=== PATIENT | male | born 1960 | race Caucasian/White ===

== ENCOUNTER 2018-04-03 22:25 | Emergency (ER) | payer OTHER ==
[~2018-04-03] VITALS: Ht 172.7 cm; Wt 104.3 kg
--- NOTE | 2018-04-03 22:32 | ED CARDIAC/CP/PALPITATIONS ---
History of Present Illness General Chief Complaint: Chest Pain Stated Complaint: BIBA CHEST PAIN AFTER SNEEZING Source: patient Exam Limitations: no limitations Vital Signs & Intake/Output Vital Signs & Intake/Output Vital Signs Date Time Temp Pulse Resp B/P B/P Pulse O2 O2 Flow FiO2 Mean Ox Delivery Rate 04/03 2303 Room Air 04/03 2235 98.1 85 16 117/61 96 Room Air ED Intake and Output 04/04 0000 04/03 1200 Intake Total Output Total 200 Balance -200 Output, Urine 200 Patient 230 lb Weight Weight Reported by Patient Measurement Method Allergies Coded Allergies: No Known Allergies (04/03/18) Triage Nurses Notes Reviewed? yes Onset: Abrupt Duration: minute(s): Timing: single episode today Quality/Severity: moderate Location: central Radiation: arms Prior Chest Pain/Card Workup: cardiac cath Modifying Factors: Improves With: rest. Associated Symptoms: "I tried to hold my sneeze in" HPI: 58-year-old gentleman presents with chest pain. He states that he was sneezing. He states that he, "held the sneeze in, "and then felt pain in his chest also radiating down both of his arms. He noted no nausea vomiting dizziness shortness of breath. The numbness resolved but he notes continued 10 out of 10 chest pain. He notes that he had a cardiac catheterization sometime last year. He did not receive any stents. He did not follow-up with the [facility]. He is otherwise well. Past History Travel History Traveled to [place] past 21 day No Medical History Any Pertinent Medical History? see below for history Musculoskeletal: osteoarthritis right knee Surgical History Surgical History: cardiac cath Family History Hx Contributory? No Review of Systems Review of Systems Constitutional: Reports: no symptoms. EENTM: Reports: no symptoms. Respiratory: Reports: no symptoms. Cardiovascular: Reports: no symptoms. GI: Reports: no symptoms. Genitourinary: Reports: no symptoms. Musculoskeletal: Reports: no symptoms. Skin: Reports: no symptoms. Neurological/Psychological: Reports: no symptoms. Hematologic/Endocrine: Reports: no symptoms. Immunologic/Allergic: Reports: no symptoms. All Other Systems: Reviewed and Negative Physical Exam Physical Exam Cardiovascular: regular rate/rhythm Comments: Review of Systems - except as otherwise noted in HPI Review of Systems Constitutional:no symptoms. EENTM:no symptoms. Respiratory:no symptoms. Cardiovascular:no symptoms. GI:no symptoms. Genitourinary:no symptoms. Musculoskeletal:no symptoms. Skin:no symptoms. Neurological/Psychological:no symptoms. Hematologic/Endocrine:no symptoms. Immunologic/Allergic:no symptoms. All Other Systems: Reviewed and Negative Physical Exam Physical Exam General Appearance: well developed/nourished, no apparent distress Head: atraumatic, normal appearance Eyes: Bilateral: normal appearance. Ears, Nose, Throat: normal pharynx, normal ENT inspection Neck: normal inspection, supple, full range of motion Respiratory: normal breath sounds, chest non-tender, no respiratory distress, quiet respiration, lungs clear Cardiovascular: regular rate/rhythm Gastrointestinal: normal bowel sounds, soft, non-tender, no organomegaly Back: normal inspection, normal range of motion Extremities: normal inspection, normal capillary refill, normal range of motion, no edema Neurologic/Psych: no motor/sensory deficits, awake, alert, oriented x 3 Skin: intact, normal color, warm/dry Core Measures ACS in differential dx? No CVA/TIA Diagnosis No Sepsis Present: No Sepsis Focused Exam Completed? No Progress Differential Diagnosis: AMI, musculoskeletal pain, unstable angina Plan of Care: Orders Procedure Date/time Status TROPONIN LEVEL 04/04 013 Complete EKG 04/04 013 Active TROPONIN LEVEL 04/03 224 Complete LIPASE 04/03 224 Complete HEPATIC FUNCTION PANEL 04/03 224 Complete D-DIMER 04/03 224 Complete CBC WITHOUT DIFFERENTIAL 04/03 224 Complete BASIC METABOLIC PANEL 04/03 224 Complete AMYLASE 04/03 224 Complete EKG 04/03 2230 Active Current Medications Sig/Rufus Start time Last Medication Dose Stop Time Status Admin Azithromycin 1,000 MG ONCE ONE 04/04 445 CAN (Zithromax) 04/04 446 Ceftriaxone Sodium 250 MG ONCE ONE 04/045 CAN (Rocephin) 04/04 0446 Laboratory Tests 04/04/18 0149: D-Dimer High Sensitivty < 200 04/04/18 0130: Troponin I < 0.01 04/03/18 2319: Anion Gap 11, Estimated GFR > 60, BUN/Creatinine Ratio 18.8, Glucose 119 H, Calcium 8.9, Total Bilirubin 0.3, Direct Bilirubin 0.3, AST 20, ALT 22, Alkaline Phosphatase 106, Troponin I < 0.01, Total Protein 6.8, Albumin 3.8, Amylase 82, Lipase 241, CBC w Diff NO MAN DIFF REQ, RBC 4.40 L, MCV 91.0, MCH 30.5, MCHC 33.5, RDW 14.2, MPV 8.0, Gran % 70.4, Lymphocytes % 19.9 L, Monocytes % 7.0, Eosinophils % 2.2, Basophils % 0.5, Absolute Granulocytes 6.3, Absolute Lymphocytes 1.8, Absolute Monocytes 0.6, Absolute Eosinophils 0.2, Absolute Basophils 0 Diagnostic Imaging: Viewed by Me: Radiology Read. Discussed w/RAD: Radiology Read. CXR Impression: PATIENT: MARIO BRAR PRESENT AGE: 58 PATIENT ACCOUNT NO: [id number] : 58 LOCATION: [facility] ORDERING PHYSICIAN: David Raphael MD SERVICE DATE: 04/03/18 EXAM TYPE: RAD - XRY- PORTABLE CHEST XRAY Addendum:. Addendum Signed by: Jaqui Meyres MD 04/03/18 7319 EXAMINATION: XR PORTABLE CHEST CLINICAL INFORMATION: Chest pain COMPARISON: None TECHNIQUE: Portable frontal view of the chest was obtained. FINDINGS: Lungs are clear well evaluated. No consolidation infiltrates. Cardiac silhouette enlarged exaggerated by the AP technique. No pleural effusion or pneumothorax. There are degenerative changes of the skeletal system. IMPRESSION: No radiographic evidence of acute cardiopulmonary disease. DICTATED BY: Jaqui Meyers MD DATE/TIME DICTATED:04/03/182330 [employer]ANT [employer] INSTRUMENT ENGINEER:YOJANA DATE/ TIME TRANSCRIBED:04/03/182330 CONFIDENTIAL, DO NOT COPY WITHOUT APPROPRIATE AUTHORIZATION. <Electronically signed in Other Vendor System> SIGNED BY: Jaqui Meyers MD 04/03/18 1033 Initial ED EKG: sinus rhythm, no acute changes Repeat EKG: unchanged Departure Departure Disposition: HOME OR SELF CARE Condition: Stable Clinical Impression Primary Impression: Chest wall pain Secondary Impressions: Atypical chest pain Referrals: Patient Has No Primary Care Dr Departure Forms: Customer Survey General Discharge Information Comments 04/04/18, 3:56am... pt is feeling better, trop/ekg benign x 2... pt safe for discharge and will follow up with cardiology. 04/04/18, 5:41am... ems arrived to transport patient to physical rehab. Critical Care Note Critical Care Note Critical Care Time: non-applicable
[2018-04-03 23:26] LABS: ABSOLUTE BASOPHIL COUNT 0 /CUMM (0.0-0.2); ABSOLUTE EOSINOPHIL COUNT 0.2 /CUMM (0.0-0.7); ABSOLUTE GRANULOCYTE CT 6.3 /CUMM (1.4-6.5); ABSOLUTE LYMPH COUNT 1.8 /CUMM (1.2-3.4); ABSOLUTE MONOCYTE COUNT 0.6 /CUMM (0.10-0.60); BASOPHIL % 0.5 % (0.0-2.0); EOSINOPHIL % 2.2 % (0-5); GRANULOCYTE % 70.4 % (42.2-75.2); MEAN CORPUSCULAR HGB 30.5 PG (27.0-31.0); MEAN CORPUSCULAR HGB CONC 33.5 G/DL (33.0-37.0); PLATELET COUNT 184 /CUMM (130-400); RBC DISTRIBUTION WIDTH 14.2 % (11.5-14.5); WHITE BLOOD CELL COUNT 8.9 /CUMM (4.8-10.8)
--- NOTE | 2018-04-03 23:37 | RADIOLOGY REPORT ---
EXAMINATION: XR PORTABLE CHEST CLINICAL INFORMATION: Chest pain COMPARISON: None TECHNIQUE: Portable frontal view of the chest was obtained. FINDINGS: Lungs are clear well evaluated. No consolidation infiltrates. Cardiac silhouette enlarged exaggerated by the AP technique. No pleural effusion or pneumothorax. There are degenerative changes of the skeletal system. IMPRESSION: No radiographic evidence of acute cardiopulmonary disease.
[2018-04-04 05:42] VITALS: BP 118/60
== END 2018-04-04 05:42 ==
LOC: ERH 22:25
PROVIDERS: Pediatrics
DX: R07.89 Other chest pain (principal)
CPT/HCPCS: 71045; 93005; 93010; 96374; 96375; J0131; J1885